=== PATIENT | female | born 1960 | race Caucasian/White ===

== ENCOUNTER 2020-04-15 08:05 | Outpatient (CLI) | payer BC, SELFPAY ==
[2020-04-15 08:15] VITALS: BP 128/74; PULSE 73; RESP 18; TEMP 36.3; O2SAT 98
--- NOTE | 2020-04-15 08:23 | PDOC.PAIN_ITS ---
Pain Clinic Procedure Note Procedure Note Procedure Note: INTRA-ARTICULAR SI JOINT INJECTION MATT DANIEL has been referred to the [facility] for intra- articular SI joint injection. Pre-operative diagnosis: disorder of sacrum Post-operative diagnosis: same as above COMMENTS: patient was evaluated by Ms Yvonne Max APRN and referred for a trial of right SI joint injection. Patient was interviewed and the medical record reviewed. There were no medical, pharmacologic, radiographic or other structural contraindications to attempting fluoroscopically guided intra-articular SI joint injection. Risks and expected side effects as well as potential benefit of the procedure were reviewed and voiced concerns addressed. The printed consent form was signed and witnessed. Standard time-out procedure was performed. Patient was placed in the prone position on the fluoroscopy table and automated blood pressure cuff and pulse oximeter applied. The skin entry point for approaching right SI joints was identified under the most advantageous fluoroscopic view and marked. Following thorough Chlorhexadine preparation of the skin and draping and 1% lidocaine infiltration of the skin entry point and subcutaneous tissues, a 22 gauge spinal needle was placed under fluoroscopic guidance into right SI joints was identified under the most advantageous fluoroscopic view and marked. Following thorough Chlorhexadine preparation of the skin and draping and 1% lidocaine infiltration of the skin entry point and subcutaneous tissues, a 22 gauge spinal needle was placed under fluoroscopic guidance into right SI joint. Intra-articular placement was confirmed by a clear arthrogram resulting from the injection of 0.25ml Omnipaque 240, 1ml 1% lidocaine, and 40mg Depomedrol were injected intra-articularily with an initial reproduction of a significant component of the usual pain. Vital signs were stable throughout the procedure and were as recorded in the docflowsheet by the nursing staff. Follow up plans and appointments were discussed with the patient. Post procedure instruction was given as documented in nursing documentation and having met discharge criteria, and was discharged from the [facility]. COMMENTS: patient tolerated procedure well. Remington Davenport MD Pain Management CC: Linda Hester
[2020-04-15 08:53] VITALS: BP 155/84; PULSE 70; RESP 17; O2SAT 100
[2020-04-15] MEDS: methylPREDNISolone ACETATE 80 MG/ML VIAL IJ (08:54)
[2020-04-15] MEDS: Lidocaine 1% Pres-Free 5 ML VIAL IJ (08:55)
[2020-04-15] MEDS: Omnipaque 240 MG/ML 50 ML BTL IJ (08:55)
--- NOTE | 2020-04-15 09:05 | DI.RAD_ITS ---
EXAM: XR PAIN CLINIC SACRIOILIAC 2V CLINICAL HISTORY: Dx: Sacroiliac Joint Dysfunction TECHNIQUE: 2D and realtime digital imaging was performed. CONTRAST MATERIAL: Refer to procedure report. COMPARISON: No exams were available for comparison FINDINGS: Fluoroscopy was provided for Dr. Davenport during the performance of a right sacroiliac joint injection. P lease refer to the procedure report for complete details. Fluoro time: 19.2 seconds IMPRESSION:
== END 2020-04-15 08:25 ==
PROVIDERS: PCP Internal Medicine; Visit Provider Internal Medicine
DX: M54.5 Low back pain (principal); M53.3 Sacrococcygeal disorders, not elsewhere classified
CPT/HCPCS: 27096; 72200; J1040; Q9967